=== PATIENT | female | born 1960 | race Caucasian/White ===

== ENCOUNTER 2017-09-01 11:40 | Emergency (ER) | payer OTHER, BC ==
[~2017-09-01] VITALS: Ht 165.1 cm; Wt 62.0 kg
[2017-09-01 11:40] VITALS: BP 148/86; PULSE 86; RESP 16; TEMP 98.5; O2SAT 99
[~2017-09-01 11:40] MED LIST: CEPH500C3 PO; DEXT15TA PO; E 101000 PO; ESTR1TAB12 PO; IMIT50TA PO; ULTR50TA PO; VITA100020 IM
[2017-09-01] MEDS ORDERED: SODIUM CHLOR 0.9% 1000 ML INJ 1,000 ML IV SCH (11:48)
[2017-09-01 11:50] VITALS: RESP 18; O2SAT 98
[2017-09-01] MEDS ORDERED: VITA200C3 PO (11:50)
[2017-09-01] MEDS ORDERED: ADDE20 PO (11:50)
[2017-09-01] MEDS ORDERED: ASPI81CH6 CHEW (11:50)
[2017-09-01] MEDS ORDERED: ESTR1 PO (11:50)
[2017-09-01] MEDS ORDERED: MORPHINE SULFATE 2 MG/ML INJ IV PUSH ONE (12:00)
[2017-09-01] MEDS ORDERED: SODIUM CHLORIDE 0.9% FLUSH 10 ML FLUSH IVF PRN (12:00)
[2017-09-01 12:07] LABS: AUTOMATED NEUTROPHIL # 5.4 TH/MM3 (1.8-7.7); BASOPHIL % 0.7 % (0.0-2.0); EOSINOPHIL % 0.5 % (0.0-4.0); HEMATOCRIT 38.4 % (35.0-46.0); HEMO FLAGS DIFF FINAL; LYMPH % 19.2 % (9.0-44.0); LYMPHOCYTE # 1.5 TH/MM3 (1.0-4.8); MEAN CELL VOLUME 98.9 FL (80.0-100.0); MEAN CORPUSCULAR HEMOGLOBIN 35.4 PG (27.0-34.0); MEAN CORPUSCULAR HGB CONC 35.8 % (32.0-36.0); MONO % 8.8 % (0.0-8.0); NEUT % 70.8 % (16.0-70.0); PLATELET COUNT 240 TH/MM3 (150-450); RED BLOOD COUNT 3.88 MIL/MM3 (4.00-5.30); WHITE BLOOD COUNT 7.6 TH/MM3 (4.0-11.0)
[2017-09-01 12:25] LABS: POTASSIUM 4.4 MEQ/L (3.5-5.1)
[2017-09-01] MEDS ORDERED: ONDANSETRON HCL 4 MG/2 ML VIAL IV ONE (12:30)
[2017-09-01 13:00] VITALS: BP 156/86; PULSE 88; RESP 16; O2SAT 97
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
[2017-09-01] MEDS ORDERED: IODIXANOL 320 MG/ML 10 ML VIAL (for Rad CT) IVCONTRAST ONE (13:59)
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
[2017-09-01 14:00] VITALS: BP 172/92; PULSE 84; RESP 16; O2SAT 97
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
[2017-09-01] MEDS ORDERED: MORPHINE SULFATE 4 MG/ML INJ IV PUSH ONE (14:30)
[2017-09-01 15:00] VITALS: BP 125/88; PULSE 84; RESP 18; O2SAT 97
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
== END 2017-09-01 15:45 | disposition home or self-care (01) ==
LOC: NEPE 11:40
DX: M54.9 Dorsalgia, unspecified (principal); R07.89 Other chest pain; F17.200 Nicotine dependence, unspecified, uncomplicated; V23.5XXA Motorcycle passenger injured in collision with car, pick-up truck or van in traffic accident, initial encounter; Z85.528 Personal history of other malignant neoplasm of kidney; Z79.82 Long term (current) use of aspirin; Z79.899 Other long term (current) drug therapy
CPT/HCPCS: 70450; 71260; 72125; 72128; 72131; 74177; 80048; 85025; 96361; 96374; 96375; 96376; 99285; J2270; J2405; J7030; Q9967